=== PATIENT | female | born 2000 | race Hispanic/Latino ===

== ENCOUNTER 2021-12-09 09:51 | Emergency (ER) | payer MEDICAID, OTHER ==
[2021-12-09] MEDS ORDERED: HYDROcodone/ACETAMINOPHEN 10-325MG TAB PO ONE (10:32)
--- NOTE | 2021-12-09 10:58 | Emergency Department Report ---
ED Abdominal Pain HPI - General Chief Complaint: Abdominal Pain Stated Complaint: ABD PAIN Source: patient Mode of arrival: Ambulatory Limitations: No Limitations - History of Present Illness Initial Comments: 21-year-old female presents to the ED complaining of right upper and lower quadrant pain. She was recently evaluated at [facility] within the last 12 hours. Review patient summary through patient portal. Was diagnosed with acute cystitis with hematuria. Patient was given Keflex, ibuprofen, Flexeril and Zofran. Patient was unaware the medication was at [facility]. Reviewed patient labs and CT imaging. She has appointment with NURSING UNIT CLERK on December 12, 2021. Patient is currently on her menstrual cycle. No change in vital signs from visit at [facility] to today. No acute distress noted no ill appearance noted. MD Complaint: abdominal pain Onset/Timin -: week(s) Location: RUQ, RLQ Radiation: none Migration to: no migration Severity scale (0 -10): 8 Quality: aching Consistency: intermittent Improves With: nothing Worsens With: nothing Associated Symptoms: denies other symptoms Treatments Prior to Arrival: NSAIDs - Related Data LMP Date: 12/09/21 Home Medications Medication Instructions Recorded Confirmed Last Taken Methylphenidate HCl [Concerta] 36 mg PO QAM 02/05/16 02/05/16 02/06/16 OXcarbazepine [Trileptal] 150 mg PO DAILY 02/05/16 02/05/16 02/06/16 Allergies Allergy/AdvReac Type Severity Reaction Status Date / Time scallops Allergy difficulty Verified 02/05/16 08:33 breathing ED Review of Systems ROS: Stated complaint: ABD PAIN Other details as noted in HPI Constitutional: denies: chills, fever Eyes: denies: eye pain, eye discharge, vision change ENT: denies: ear pain, throat pain Respiratory: denies: cough, shortness of breath, wheezing Cardiovascular: denies: chest pain, palpitations Endocrine: no symptoms reported Gastrointestinal: abdominal pain. denies: nausea, diarrhea Genitourinary: denies: urgency, dysuria, discharge Musculoskeletal: denies: back pain, joint swelling, arthralgia Skin: denies: rash, lesions Neurological: denies: headache, weakness, paresthesias Psychiatric: denies: anxiety, depression Hematological/Lymphatic: denies: easy bleeding, easy bruising ED Past Medical Hx - Past Medical History Previous Medical History?: Yes Hx Hypertension: No Hx Heart Attack/AMI: No Hx Liver Disease: No Hx Renal Disease: No Hx Headaches / Migraines: Yes Hx Seizures: No Hx Asthma: No Additional medical history: UTI - Surgical History Past Surgical History?: Yes Additional Surgical History: Tonsil removed, Nexplonon implant - Social History Smoking Status: Never Smoker - Medications Home Medications: Home Medications Medication Instructions Recorded Confirmed Last Taken Type Methylphenidate HCl [Concerta] 36 mg PO QAM 02/05/16 02/05/16 02/06/16 History OXcarbazepine [Trileptal] 150 mg PO DAILY 02/05/16 02/05/16 02/06/16 History ED Physical Exam - General Limitations: No Limitations General appearance: alert, in no apparent distress - Head Head exam: Present: atraumatic, normocephalic - Eye Eye exam: Present: normal appearance - ENT ENT exam: Present: mucous membranes moist - Neck Neck exam: Present: normal inspection - Respiratory Respiratory exam: Present: normal lung sounds bilaterally. Absent: respiratory distress - Cardiovascular Cardiovascular Exam: Present: regular rate, normal rhythm. Absent: systolic murmur, diastolic murmur, rubs, gallop - GI/Abdominal GI/Abdominal exam: Present: soft, normal bowel sounds - Extremities Exam Extremities exam: Present: normal inspection - Back Exam Back exam: Present: normal inspection - Neurological Exam Neurological exam: Present: alert, oriented X3 - Psychiatric Psychiatric exam: Present: normal affect, normal mood - Skin Skin exam: Present: warm, dry, intact, normal color. Absent: rash ED Course Vital Signs 12/09/21 10:13 Temperature 97.9 F Pulse Rate 104 H Respiratory 18 Rate Blood Pressure 116/52 O2 Sat by Pulse 99 Oximetry ED Medical Decision Making - Medical Decision Making 21-year-old female presents to the ED complaining of right upper and lower quadrant pain. She was recently evaluated at [facility] within the last 12 hours. Review patient summary through patient portal. Was diagnosed with acute cystitis with hematuria. Patient was given Keflex, ibuprofen, Flexeril and Zofran. Patient was unaware the medication was at [facility] pharmacy. Reviewed patient labs and CT imaging. She has appointment with NURSING UNIT CLERK on December 12, 2021. Patient is currently on her menstrual cycle. No change in vital signs from visit at [facility] to today. No acute distress noted no ill appearance noted. 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 keep appointment with NURSING UNIT CLERK. Patient verbalized understanding. [place] 10 mg given in an ED. patient texting on phone. No acute distress noted .No ill appearance noted upon discharge Critical care attestation.: If time is entered above; I have spent that time in minutes in the direct care of this critically ill patient, excluding procedure time. 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
[2021-12-09 11:42] VITALS: BP 100/33
== END 2021-12-09 11:44 | disposition home or self-care (01) ==
LOC: ED 09:51
DX: R10.11 Right upper quadrant pain (principal); G43.909 Migraine, unspecified, not intractable, without status migrainosus; Z79.899 Other long term (current) drug therapy; Z98.890 Other specified postprocedural states; Z91.013 Allergy to seafood
CPT/HCPCS: 99282